=== PATIENT | female | born 1980 | race Caucasian/White ===

== ENCOUNTER 2016-04-24 23:41 | Emergency (ER) | payer OTHER ==
[2016-04-24 23:52] VITALS: BP 92/62; PULSE 91; TEMP 98; BMI 18.6
--- NOTE | 2016-04-24 23:58 | PDOC ---
History of Present Illness - General Chief Complaint: Abscess Boil Stated Complaint: BARTHOLIN CYST Time Seen by Provider: 04/24/16 23:55 History Source: Patient Exam Limitations: No Limitations - History of Present Illness Initial Comments: 04/24/16 23:56 This is a 35-year-old female who comes in complaining of a Bartholin's cyst that is causing her discomfort. Patient denies any fevers or chills. Patient has had a Bartholin's cyst in the past that had to be incised and drained in the past. PAST MEDICAL HISTORY: no significant history PAST SURGICAL HISTORY: no significant history FAMILY HISTORY: no pertinant history SOCIAL HISTORY: Pt lives with family and is employed. MEDICATIONS: reviewed ALLERGIES: As per nursing notes Review of Systems General: No fevers or chills, no weakness, no weight loss HEENT: No change in vision. No sore throat,. No ear pain CardioVascular: No chest pain or shortness of breath Respiratory:No cough, or wheezing. Gastrointestinal: no nausea, vomitting, diarrhea or constipation, No rectal bleeding Genitourinary: No dysuria, hematuria, or frequency, Bartholin's cyst as per history of present illness Musculoskeletal: No joint or muscle pain or swelling Neurologic: No headache, vertigo, dizziness or loss of consciousness Psychiatric: nor depression Skin: No rashes or easy bruising Endocrine: no increased thirst or abnormal weight change Allergic: no skin or latex allergy All other systems reviewed and normal GENERAL: The patient is awake, alert, and fully oriented, in no acute distress. HEAD: Normal with no signs of trauma. EYES: Pupils equal, round and reactive to light, extraocular movements intact, sclera anicteric, conjunctiva clear. EXTREMITIES: Normal range of motion, no edema. Genital: There is some erythema and tenderness of the right labia area however there is no palpable collection at this time. NEUROLOGICAL: Normal speech, normal gait. PSYCH: Normal mood, normal affect. SKIN: Warm, Dry, normal turgor, no rashes or lesions noted. 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 OVARY.) GI Disorders: Yes (CROHNS DISEASE.) Disorders: Yes (ENDOMETRIOSIS.) Psychiatric Problems: Yes (ANXIETY.DEPRESSION) - Surgical History Abdominal Surgery: Yes Cholecystectomy: Yes - Psycho/Social/Smoking Cessation Hx Anxiety: Yes Suicidal Ideation: No Smoking History: Current every day smoker Number of Cigarettes Smoked Daily: 10 Information on smoking cessation initiated: Yes Hx Alcohol Use: No Substance Use Type: None *Physical Exam - Vital Signs Last Vital Signs Temp Pulse Resp BP Pulse Ox 98 F 91 H 16 92/62 99 04/24/16 23:49 04/24/16 23:49 04/24/16 23:49 04/24/16 23:49 04/24/16 23:49 *DC/Admit/Observation/Transfer Diagnosis at time of Disposition: Cyst of Bartholin's gland duct - Discharge Dispostion Disposition: HOME Condition at time of disposition: Stable Admit: No - Patient Instructions Additional Instructions: Hot compresses to the area.. Tylenol or Motrin as needed for pain. Follow-up with your OB on Wednesday if not improved. Return to the emergency department immediately with ANY new, persistent or worsening symptoms. Continue any medications as previously prescribed by your physician. You should follow up with your primary doctor as soon as possible regarding today's emergency department visit. . Please make sure your doctor reviews the results of your emergency evaluation. Thank you for coming to the Emergency Department today for your care. It was a pleasure to see you today. Please note that your evaluation is INCOMPLETE until you follow-up with your doctor.
== END 2016-04-24 23:59 | disposition home or self-care (01) ==
LOC: FER 23:41
DX: N75.0 Cyst of Bartholin's gland (principal); F17.210 Nicotine dependence, cigarettes, uncomplicated; Z85.43 Personal history of malignant neoplasm of ovary; F41.8 Other specified anxiety disorders; K50.90 Crohn's disease, unspecified, without complications
CPT/HCPCS: 99282-25

== ENCOUNTER 2016-05-09 01:48 | Emergency (ER) | payer OTHER ==
[2016-05-09 02:06] VITALS: TEMP 98.6; BMI 23.0
[2016-05-09] MEDS ORDERED: SODIUM CHLORIDE 1,000 ML IV STA ×2 (02:37→05:07)
[2016-05-09] MEDS ORDERED: ONDANSETRON 4 MG/2 ML VIAL IVPUSH ONE ×2 (02:37→03:40)
--- NOTE | 2016-05-09 02:38 | PDOC ---
History of Present Illness - General Chief Complaint: Pain, Acute Stated Complaint: ABD PAIN, N/V/D Time Seen by Provider: 05/09/16 02:29 - History of Present Illness Initial Comments: 05/09/16 02:42 This 35-year-old woman with a history of Crohn's disease, ovarian carcinoma, endometriosis, ovarian cysts, pancreatitis, cyclical vomiting syndrome presents with 2 day history of persistent nausea/vomiting and lower abdominal pain. Patient states that she has had vomiting with any oral intake. No blood/coffee grounds ; has only seen partially digested food or liquids in emesis. She had one loose stool this morning. She took Imodium after this and has had no other bowel movements today. No recent fever/chills. Patient is currently being treated with Remicade infusions every several months for her Crohn's disease (none for the last 6 months) and has not had any recent flareups. Patient has left-sided ovarian cyst that reportedly is large and is being followed by ultrasound every several weeks by her ceo and president. She has not had an ultrasound in a few months. Patient was hospitalized in September, with pancreatitis. Although etiology of the pancreatitis was unclear, patient underwent cholecystectomy during the hospitalization. Ovarian carcinoma diagnosis was several years ago; she had appendectomy performed during procedure for the her ovarian carcinoma. Patient was hospitalized approximately a year ago with vomiting and was diagnosed as having cyclical vomiting syndrome. She had a few previous hospitalizations for this. Patient also has a history of anxiety/depression. The patient is currently taking oxycodone daily for her lower abdominal pain ( thought to be secondary to Crohn's disease/endometriosis/abdominal surgeries); this is prescribed by her identity management consultant in [facility]. Past History - Past Medical History Allergies/Adverse Reactions: Allergies Allergy/AdvReac Type Severity Reaction Status Date / Time aspirin Allergy Mild Rash Verified 07/10/14 17:50 Home Medications: Ambulatory Orders Bupropion HCl [Wellbutrin Xl -] 150 mg PO DAILY 04/24/16 Escitalopram Oxalate [Lexapro -] 25 mg PO DAILY 04/24/16 Ondansetron [Zofran -] 4 mg PO BID PRN #10 tablet 05/09/16 Oxycodone HCl/Acetaminophen [Percocet 10-325 mg Tablet] 1 each PO PRN PRN Prednisone [Deltasone -] 40 mg PO DAILY #14 tablet 05/09/16 Ranitidine HCl [Zantac] 150 mg PO DAILY 05/09/16 Zolpidem Tartrate [Ambien] 10 mg PO PRN PRN 05/09/16 Cancer: Yes (CA TUMOR TO RT OVARY.) GI Disorders: Yes (CROHNS DISEASE, GERD,) Disorders: Yes (ENDOMETRIOSIS.) Liver Disease: (PANCREATITIS) Psychiatric Problems: Yes (ANXIETY.DEPRESSION) Other medical history: CHRONIC PAIN, INSOMNIA - Surgical History Abdominal Surgery: Yes Cholecystectomy: Yes - Psycho/Social/Smoking Cessation Hx Anxiety: Yes Suicidal Ideation: No Smoking History: Current every day smoker Have you smoked in the past 12 months: Yes Number of Cigarettes Smoked Daily: 10 Information on smoking cessation initiated: Yes 'Breaking Loose' booklet given: 05/09/16 Hx Alcohol Use: No Substance Use Type: None Review of Systems - Review of Systems Able to Perform ROS?: Yes Comments:: 12 point review of systems is negative except for what is noted in the history of present illness *Physical Exam - Vital Signs Last Vital Signs Temp Pulse Resp BP Pulse Ox 98.6 F 106 H 16 102/67 100 05/09/16 01:50 05/09/16 01:50 05/09/16 01:50 05/09/16 01:50 05/09/16 01:50 - Physical Exam Comments: GENERAL: Adult female, alert and oriented 3, in no acute distress HEAD: Normal with no signs of trauma. EYES: PERRLA, EOMI, sclera anicteric, conjunctiva clear. ENT: Ears normal, nares patent, oropharynx clear without exudates. Dry mucous membranes. NECK: Normal range of motion, supple without lymphadenopathy, JVD, or masses. LUNGS: Breath sounds equal, clear to auscultation bilaterally. No wheezes, and no crackles. HEART:Regular rate and rhythm, normal S1 and S2 without murmur, rub or gallop. ABDOMEN: Hypoactive bowel sounds, soft, nondistended; moderate bilateral lower quadrant tenderness without rebound or guarding No masses or organomegaly evident EXTREMITIES: Normal range of motion, no edema. No clubbing or cyanosis. No erythema, or tenderness. NEUROLOGICAL: Cranial nerves II through XII grossly intact. Normal speech. No focal neurologic deficits MUSCULOSKELETAL: Back non-tender to palpation, no CVA tenderness SKIN: Warm, Dry, normal turgor, no rashes or lesions noted. ED Treatment Course - LABORATORY CBC & Chemistry Diagram: 05/09/16 01:35 05/09/16 03:29 Medical Decision Making - Medical Decision Making 05/09/16 03:43 Nausea and lower abdominal pain continues after 4 mg of Zofran IV and 1 g of acetaminophen IV. Additional 4 mg of Zofran will be given as well as 2 mg of morphine IV Laboratory evaluation showed a CBC which was essentially normal. Chemistry profile significant for moderate prerenal azotemia (BUN 15/creatinine 0.6) Lipase was normal. Patient required an additional 2 mg of morphine IV for analgesia. Patient received 2 L and normal saline IV. Abdominal/pelvic CT performed. Other than thickening of the terminal ileum, no other abnormality seen. In light of patient's history of Crohn's disease, this is consistent with Crohn's disease flareup ileitis. Results discussed with the patient. She has required corticosteroids in the past for Crohn's disease flareups, although this has not occurred in quite a while. Flareup may be secondary to the lack of Remicade infusion for the last several months. Patient states that she will be able to follow-up with her brick and tile making machine operator in [facility] in the near future. Patient will be given 125 mg of Solu-Medrol IV as well as an additional 500 mL of normal saline IV 05/09/16 06:08 Patient has used Zofran by mouth in the past as needed for nausea; prescription for Zofran 4 mg (#10) to be used up to twice a day as needed for nausea will be transmitted to her pharmacy. Also, Prednisone, 40mg daily will be prescribed. The patient will be given 14 tablets of 20 mg for a one-week course. However, she should follow-up with her brick and tile making machine operator within the next 3-4 days. She should return to the emergency room if she has worsening pain or persistent vomiting *DC/Admit/Observation/Transfer Diagnosis at time of Disposition: Crohn's disease involving terminal ileum - Discharge Dispostion Disposition: HOME Condition at time of disposition: Stable - Patient Instructions Printed Discharge Instructions: DI for Crohn's Disease Flare Additional Instructions: Prednisone 40 mg daily Continue other medications as prescribed Follow-up with your brick and tile making machine operator within the next 3-4 days Zofran 4 mg as needed for nausea Return to the ER if you have worsening pain/fever/persistent vomiting
[2016-05-09] MEDS ORDERED: ACETAMINOPHEN 1000 MG/100 ML VIAL (NON FORMULARY) IVPB ONE (02:46)
[2016-05-09 03:03] LABS: BASOPHIL 0.4 % (0-2.0); EOSINOPHIL 0.3 % (0-4.5); MCH 27.9 pg (25.7-33.7); MCHC 33.5 g/dl (32.0-36.0); MEAN CELL VOLUME 83.2 fl (80-96); MEAN PLT VOLUME 7.4 fl (7.5-11.1); NEUTROPHILS 77.1 % (42.8-82.8); PLATELET COUNT 435 K/MM3 (134-434); RDW 17.1 % (11.6-15.6)
[2016-05-09 03:19] LABS: URINE COLOR DK YELLOW
[2016-05-09 03:20] LABS: URINE APPEARANCE SL CLOUDY; URINE BILIRUBIN 2+ (NEGATIVE); URINE BLOOD NEGATIVE (NEGATIVE); URINE GLUCOSE (UA) NEGATIVE (NEGATIVE); URINE KETONE NEGATIVE (NEGATIVE); URINE PROTEIN 1+ (NEGATIVE)
[2016-05-09 03:21] LABS: URINE LEUK ESTERASE 1+ (NEGATIVE); URINE NITRITE NEGATIVE (NEGATIVE); URINE RBC 6 /hpf (0-3); URINE UROBILINOGEN NORMAL (0.2-1.0)
[2016-05-09 03:22] LABS: URINE BACTERIA MODERATE /hpf (NEGATIVE); URINE MUCUS MANY; URINE WBC 33 (3-5)
[2016-05-09 03:39] VITALS: BP 113/77; PULSE 86
[2016-05-09] MEDS ORDERED: morphine CARPU-JECT 2 MG/1 ML DISP.SYRIN IVPUSH ONE ×2 (03:39→05:06)
[2016-05-09 04:43] LABS: ALBUMIN 3.3 g/dl (3.4-5.0); ALK PHOS 81 U/L (45-117); ANION GAP 10 (8-16); BILIRUBIN,TOTAL 0.7 mg/dL (0.2-1.0); CALCIUM 7.8 mg/dL (8.5-10.1); CO2 24 mmol/L (21-32); CREATININE 0.6 mg/dL (0.55-1.02); GLUCOSE,RANDOM 91 mg/dL (74-106); SGOT/AST 19 U/L (15-37); SGPT/ALT 25 U/L (12-78); TOT PROT 6.6 g/dl (6.4-8.2)
[2016-05-09] MEDS ORDERED: methylPREDNISolone NA SUCC 125 MG/2 ML VIAL IVPB ONE (05:51)
[2016-05-09] MEDS ORDERED: SODIUM CHLORIDE 500 ML IV STA (05:54)
== END 2016-05-09 06:36 | disposition home or self-care (01) ==
LOC: FER 01:48
PROC: 3E033NZ Introduction of Analgesics, Hypnotics, Sedatives into Peripheral Vein, Percutaneous Approach (ICD-10-PCS; principal; 2016-05-09)
PROC: 3E033GC Introduction of Other Therapeutic Substance into Peripheral Vein, Percutaneous Approach (ICD-10-PCS; 2016-05-09)
PROC: 3E0337Z Introduction of Electrolytic and Water Balance Substance into Peripheral Vein, Percutaneous Approach (ICD-10-PCS; 2016-05-09)
DX: K50.00 Crohn's disease of small intestine without complications (principal); Z85.43 Personal history of malignant neoplasm of ovary; F41.8 Other specified anxiety disorders; F17.210 Nicotine dependence, cigarettes, uncomplicated; K21.9 Gastro-esophageal reflux disease without esophagitis
CPT/HCPCS: 36415; 74176-TC; 80053; 81003; 81015; 83690; 84703; 85025; 96361; 96374; 96375; 96376; 99283-25

== ENCOUNTER 2016-05-09 18:08 | Inpatient (IN) | payer OTHER ==
--- NOTE | 2016-05-09 18:13 | PDOC ---
History of Present Illness - General History Source: Patient Exam Limitations: No Limitations - History of Present Illness Initial Comments: 05/09/16 18:23 The patient is a year old, with significant past medical history Crohns disease , ovarian carcinoma, endometriosis, ovarian cysts, pancreatitis, and cyclical vomiting syndrome, anxiety, depression, who was seen in the ER earlier today complaining of abdominal pain with nausea and vomiting. Ct showed thickening of the terminal ileum that is consistent with a Crohns flare. She was discharged with sublingual zofran and oral prednisone. She returns now with persistent vomiting, nausea, and RLQ pain. She states that she is unable to hold down any of the medications prescribed. The patient has not been compliant with Remicade infusions, with her most recent infusion being 6 months ago. She reports that her last flareup was 1 year ago. Denies fever, chills. Denies chest pain, SOB. Denies urinary changes. Allergies:aspirin Social Hx: Tobacco use. No alcohol use. PCP- Dr. Macdonald ([facility]) Gastro: Dr. Welch ([facility]) <Stephany Blandon - Last Filed: 05/09/16 18:23> <Will Jo - Last Filed: 05/09/16 18:52> - General Chief Complaint: Pain Stated Complaint: REVISIT FOR ABDOMINAL PAIN Time Seen by Provider: 05/09/16 18:12 Past History <Stephany Blandon - Last Filed: 05/09/16 18:23> - Past Medical History Cancer: Yes (CA TUMOR TO RT OVARY.) GI Disorders: Yes (CROHNS DISEASE, GERD,) Disorders: Yes (ENDOMETRIOSIS.) Liver Disease: (PANCREATITIS) Psychiatric Problems: Yes (ANXIETY.DEPRESSION) - Surgical History Abdominal Surgery: Yes Cholecystectomy: Yes - Psycho/Social/Smoking Cessation Hx Anxiety: Yes Suicidal Ideation: No Smoking History: Current every day smoker Have you smoked in the past 12 months: Yes Number of Cigarettes Smoked Daily: 10 'Breaking Loose' booklet given: 05/09/16 Hx Alcohol Use: No Substance Use Type: None <Will Jo - Last Filed: 05/09/16 18:52> - Past Medical History Allergies/Adverse Reactions: Allergies Allergy/AdvReac Type Severity Reaction Status Date / Time aspirin Allergy Mild Rash Verified 07/10/14 17:50 Home Medications: Ambulatory Orders Bupropion HCl [Wellbutrin Xl -] 150 mg PO DAILY 04/24/16 Escitalopram Oxalate [Lexapro -] 25 mg PO DAILY 04/24/16 Ondansetron [Zofran -] 4 mg PO BID PRN #10 tablet 05/09/16 Oxycodone HCl/Acetaminophen [Percocet 10-325 mg Tablet] 1 each PO PRN PRN Prednisone [Deltasone -] 40 mg PO DAILY #14 tablet 05/09/16 Ranitidine HCl [Zantac] 150 mg PO DAILY 05/09/16 Zolpidem Tartrate [Ambien] 10 mg PO PRN PRN 05/09/16 Review of Systems - Review of Systems Comments:: 05/09/16 18:24 CONSTITUTIONAL: Absent: fever, no chills, no fatigue EYES: Absent: visual changes ENT: Absent: ear pain, no sore throat CARDIOVASCULAR: Absent: chest pain, no palpitations RESPIRATORY: Absent: cough, no SOB GI: Present: RLQ pain, nausea, vomiting Absent: no constipation, no diarrhea GENITOURINARY: Absent: dysuria, no frequency, no hematuria MUSCULOSKELETAL: Absent: back pain, no arthralgia, no myalgia SKIN: Absent: rash <Stephany Blandon - Last Filed: 05/09/16 18:23> *Physical Exam - Vital Signs Last Vital Signs Temp Pulse Resp BP Pulse Ox 99.3 F 91 H 15 107/71 100 05/09/16 18:09 05/09/16 18:09 05/09/16 18:09 05/09/16 18:09 05/09/16 18:09 - Physical Exam Comments: 05/09/16 18:24 GENERAL: Well-appearing, well-nourished. No apparent distress. HEENT: Normocephalic, atraumatic. PERRL, EOM intact. CARDIOVASCULAR: Normal S1, S2. Regular rate and rhythm. PULMONARY: Clear to auscultation bilaterally. ABDOMEN: Mild RLQ tenderness upon deep palpation. Soft, non-distended. EXTREMITIES: Normal ROM in all four extremities. No gross deformities. SKIN: Warm, dry. No rash NEUROLOGICAL: No focal neurological deficits. <Stephany Blandon - Last Filed: 05/09/16 18:23> Heart Score/ECG Review - ECG Intrepretation Comment:: 05/09/16 18:51 Normal sinus rhythm at 90, normal axis, normal intervals, no ST changes, flat T- wave in 1, aVL, lead 3 <Will Jo - Last Filed: 05/09/16 18:52> Medical Decision Making - Medical Decision Making 05/09/16 18:21 The patient is well appearing and in no acute distress Will repeat labs Will administer Morphine, Zofran, Normal Saline Will admit She will require GI consult There is no gastroenterology coverage at the [facility] Will transfer to [facility] Clinical Impression: Crohn's Flare Intractible vomiting Case discussed in detail with admitting provider including history, physical exam and ancillary studies. Admitting physician has assumed care for the patient, will follow all pending diagnostics and will complete the evaluation and treatment. A portion of this note was documented by scribe services under my direction. I have reviewed the details of the note, within reason, and agree with the documentation with the following case summary and management plan written by me. 05/09/16 18:52 Labs pending Oncoming emergency physician will follow results and communicates significant findings to the admitting physician <Will Jo - Last Filed: 05/09/16 18:52> *DC/Admit/Observation/Transfer - Attestations Scribe Attestion: 05/09/16 18:24 Documentation prepared by MARCELLUS Trinidad, acting as medical consultant for Emergency Dept,Physician, . <Stephany Blandon - Last Filed: 05/09/16 18:23> - Discharge Dispostion Admit: Yes <Will Jo - Last Filed: 05/09/16 18:52> Diagnosis at time of Disposition: Crohn disease, Crohn's disease involving terminal ileum, Abdominal pain - Discharge Dispostion Condition at time of disposition: Good
[2016-05-09] MEDS ORDERED: SODIUM CHLORIDE 1,000 ML IV STA (18:15)
[2016-05-09] MEDS ORDERED: ONDANSETRON 4 MG/2 ML VIAL ONE (18:22)
[2016-05-09] MEDS ORDERED: morphine CARPU-JECT 4 MG/1 ML DISP.SYRIN IVPUSH ONE (18:23)
[2016-05-09] MEDS ORDERED: ONDANSETRON 4 MG/2 ML VIAL IVPB ONE (18:23)
[2016-05-09] MEDS ORDERED: morphine CARPU-JECT 10 MG/1 ML DISP.SYRIN ONE (18:25)
[2016-05-09 19:30] LABS: BASOPHIL 0.3 % (0-2.0); INR 1.15 (0.82-1.09); MCHC 33.8 g/dl (32.0-36.0); MEAN CELL VOLUME 82.8 fl (80-96); MEAN PLT VOLUME 7.3 fl (7.5-11.1); NEUTROPHILS 86.3 % (42.8-82.8); PLATELET COUNT 452 K/MM3 (134-434); PROTHROMBIN TIME (PATIENT) 12.8 SEC (10.2-13.0); RDW 16.3 % (11.6-15.6); WHITE BLOOD COUNT 6.2 K/mm3 (4.0-10.0)
[2016-05-09 19:41] LABS: CREATININE 0.5 mg/dl (0.6-1.3); GLUCOSE,RANDOM 149 mg/dl (74-106)
[2016-05-09 19:42] LABS: ALBUMIN 3.9 g/dl (3.5-5.0); ALK PHOS 75 U/L (32-92); ANION GAP 7 (8-16); BILIRUBIN,TOTAL 0.8 mg/dl (0.2-1.0); CALCIUM 9.3 mg/dl (8.4-10.2); CO2 23 mmol/L (22-28); SGOT/AST 35 U/L (10-42); SGPT/ALT 21 U/L (10-40); TOT PROT 7.5 g/dl (6.4-8.3)
[2016-05-09] MEDS ORDERED: morphine CARPU-JECT 2 MG/1 ML DISP.SYRIN IVPUSH ONE ×2 (20:11→21:05)
[2016-05-09 20:21] LABS: URINE APPEARANCE Clear; URINE BILIRUBIN Negative (NEGATIVE); URINE BLOOD Negative (NEGATIVE); URINE COLOR YELLOW; URINE GLUCOSE (UA) Negative (NEGATIVE); URINE KETONE Negative (NEGATIVE); URINE LEUK ESTERASE Negative (NEGATIVE); URINE NITRITE Negative (NEGATIVE); URINE PROTEIN Negative (NEGATIVE); URINE UROBILINOGEN 0.2 E.U/dl (0.2-1.0)
[2016-05-09] MEDS ORDERED: ACETAMINOPHEN 325 MG TABLET (FP) PO PRN (22:47)
[2016-05-09] MEDS ORDERED: METOCLOPRAMIDE HCL INJECTION 10 MG/2 ML VIAL IVPB PRN (22:48)
--- NOTE | 2016-05-09 22:49 | HP ---
Admitting History and Physical - Admission Chief Complaint: n/v abd pain History of Present Illness: 35 year old, with significant past medical history Crohns disease, ovarian carcinoma, endometriosis, ovarian cysts, pancreatitis, and cyclical vomiting syndrome, anxiety, depression, who was seen in the ER earlier today complaining of abdominal pain with nausea and vomiting. She reports onset of symptoms 3 days ago beginning with loss of appetite and advancing to nausea, vomiting, diarrhea and RLQ pain. She reports RLQ which is intermittent sharp/crampy, 6/10 , aggravated w food. She reports the pain radiates to her R leg. She reports taking Tylenol at home w no relief. She reports having non-bloody diarrhea x 2 days. She states she took 2 of the Prednisone prescribed to her earlier in the day w no relief. She reports she has not been able to hold and any food down.She denies sob, chest pain, syncope, leg edema, dyuria, recent travel. Her LMP was 1 week ago. She reports having Remicade 6mon ago but stopping for no clear reason. PMH/PSH- Crohns disease, ovarian carcinoma, endometriosis, ovarian cysts, pancreatitis, cholecystecomty, appy, l ovarian cyst excision, and cyclical vomiting syndrome, anxiety, depression Social- denies alcohol, tobacco, rec drugs. , on disability Famhx- Grandad- Throat cancer. Grand mom- NOnhodgkins lymphoma, ?IBS PCP- Dr tiffanie best GI- Jumafily[facility] T[employer]AS[facility] SPECIALIST- Dr Marco Jacobs neg except for hpi Physical General- in nad, alert Resp- no cough, no ronchi, lungs ctab, no wheeze, no cyanosis Cards- s1s2 heard, no JVD, no leg edema, RRR Skin- no erythema, dry warm, intact Psych- cooperative, no agitation Neuro- cn2-12 grossly intact, speech clear, no seizures, no facial droop Musk-normal arom bue/ble, no back pain HENT- at/nc, kathleen, neck supple, trachea midline Gi- soft, no rigidity, no rebound, no guarding, no distention, TTP RLQ, BS normoactive Problem list Abdominal pain depression imaging: Abdominal/pelvic CT performed. Other than thickening of the terminal ileum, no other abnormality seen. Left adnexa 5.7cm focus of soft tissue thickening which could be on the basis of persistent/recurrent neoplastic disease vs artifactual d/t somewhat limited bowel opacification in the region and lack of iv contrast a/p-35 year old, with significant past medical history Crohns disease, ovarian carcinoma, endometriosis, ovarian cysts, pancreatitis, and cyclical vomiting syndrome, anxiety, depression, who was seen in the ER earlier today complaining of abdominal pain with nausea and vomiting admitted for eval of their emergent condition 1. Abdominal pain, diarrhea, nausea ?crohns flare CT scan show thickening of terminal ileum and left adnexa 5.7cm focus of soft tissue thickening which could be on the basis of persistent/recurrent neoplastic disease v artifactual d/t somewhat limited bowel opacification in the region and lack of iv contrast Check for cdiff Gi consult placed IVF, pain control, NPO PRN zofran reglan 2. Depression, anxiety Cont home meds FEN IVF, NPO DVT prophy SCDs, OOB, Hep SQ Dispo- Requires >2MN stay for ?acute crohns flare History Source: Patient Limitations to Obtaining History: No Limitations - Smoking History Smoking history: Current every day smoker Have you smoked in the past 12 months: Yes Aproximately how many cigarettes per day: 10 - Alcohol/Substance Use Hx Alcohol Use: No Home Medications - Allergies Allergies/Adverse Reactions: Allergies Allergy/AdvReac Type Severity Reaction Status Date / Time aspirin Allergy Mild Rash Verified 05/09/16 19:20 - Home Medications Home Medications: Ambulatory Orders Bupropion HCl [Wellbutrin Xl -] 150 mg PO DAILY 04/24/16 Escitalopram Oxalate [Lexapro -] 25 mg PO DAILY 04/24/16 Ondansetron [Zofran -] 4 mg PO BID PRN #10 tablet 05/09/16 Oxycodone HCl/Acetaminophen [Percocet 10-325 mg Tablet] 1 each PO PRN PRN Prednisone [Deltasone -] 40 mg PO DAILY #14 tablet 05/09/16 Ranitidine HCl [Zantac] 150 mg PO DAILY 05/09/16 Zolpidem Tartrate [Ambien] 10 mg PO PRN PRN 05/09/16 Clonazepam [Klonopin -] 0.5 mg PO ASDIR 05/10/16 Rifaximin [Xifaxan] 550 mg PO BID 05/10/16 Physical Examination Vital Signs: Vital Signs Temperature 99.3 F 03/25/17 21:08 Pulse Rate 56 L 05/09/16 21:08 Respiratory Rate 16 05/09/16 21:08 Blood Pressure 110/75 05/09/16 21:08 O2 Sat by Pulse Oximetry (%) 100 05/09/16 18:09 Visit type - Emergency Visit Emergency Visit: Yes ED Registration Date: 05/09/16 Care time: The patient presented to the Emergency Department on the above date and was hospitalized for further evaluation of their emergent condition. - New Patient This patient is new to me today: Yes Date on this admission: 05/10/16 - Critical Care Critical Care patient: No
[2016-05-09] MEDS: SODIUM CHLORIDE 1,000 ML IV SCH (23:36)
[2016-05-09] MEDS: ONDANSETRON 4 MG/2 ML VIAL IVPB PRN (23:37)
[2016-05-09] MEDS: ZOLPIDEM TARTRATE 5 MG TABLET PO PRN (23:39)
[2016-05-10 00:12] VITALS: BMI 22.7
[2016-05-10] MEDS: morphine CARPU-JECT 2 MG/1 ML DISP.SYRIN IVPB PRN ×7 (00:48→23:42)
[2016-05-10] MEDS ORDERED: MAG HYDROX/AL HYDROX/SIMETH 30 ML UNIT-DOSE CUP PO PRN (01:21)
[2016-05-10] MEDS: HEPARIN NA (PORCINE) 5,000 UNITS/ML 1ML VIAL SQ SCH ×3 (06:31→22:11)
[2016-05-10] MEDS: ONDANSETRON 4 MG/2 ML VIAL IVPB PRN (06:31)
[2016-05-10] MEDS ORDERED: PANTOPRAZOLE SODIUM 40 MG in SODIUM CHLORIDE 100 ML IVPB SCH (10:00)
[2016-05-10] MEDS ORDERED: PANTOPRAZOLE SODIUM 40 MG/100 ML PRE-DOCKED IVPB SCH (10:00)
--- NOTE | 2016-05-10 11:20 | CON.GI ---
Consult Consult Specialty:: GI Referred by:: Hospitalist Reason for Consultation:: History of Crohn's disease - History of Present Illness Chief Complaint: "I was nauseous and vomiting" History of Present Illness: 35F with 10 year history of Crohn's Disease (? small bowel. Patient not too clear). She lives in [facility] and is followed by and is visitng her friend down here. She was seen at the [facility] yesterday 05/09/16 for abdominal pain and vomiting. There was no GI conultant available (Dr. Greg Foster away but ? no GI coverage) and she was therefore transferred to [facility] for further evaluation. She has currently had no nausea, vomiting or diarrhea and remains afebrile. In terms of her IBD in the past she was started on Asacol however she developed a rash. She was then on Humira, whichc did not seem to work and was maintained on Remicade. She says that while the remicade seemed to work, she did not continue with therapy. She had not seen her color maker formulator Dr. Amrik Mattson in "months" and she believes that her last colonoscopy was about 5 years ago. She describes being on rifaximin for ? GERD. Overall she feels better. There is no family history of colorectal cancer or other GI malignancy. - History Source History Provided By: Patient Limitations to Obtaining History: No Limitations - Past Medical History Gastrointestinal: Yes: Crohn's Disease Reproductive: Yes: Endometriosis, Other (Ovarian cancer s/p right ooporectomy, Left ovarian cyst s/p cystectomy) - Past Surgical History Past Surgical History: Yes: Cholecystectomy (laparoscopic) - Alcohol/Substance Use Hx Alcohol Use: No History of Substance Use: reports: None - Smoking History Smoking history: Current every day smoker Have you smoked in the past 12 months: Yes Aproximately how many cigarettes per day: 10 - Social History Usual Living Arrangement: With Spouse ADL: Independent Occupation: Unemplyed Place of : [employer] [facility] History of Recent Travel: No Home Medications - Allergies Allergies/Adverse Reactions: Allergies Allergy/AdvReac Type Severity Reaction Status Date / Time aspirin Allergy Mild Rash Verified 05/09/16 19:20 - Home Medications Home Medications: Ambulatory Orders Bupropion HCl [Wellbutrin Xl -] 150 mg PO DAILY 04/24/16 Escitalopram Oxalate [Lexapro -] 25 mg PO DAILY 04/24/16 Ondansetron [Zofran -] 4 mg PO BID PRN #10 tablet 05/09/16 Oxycodone HCl/Acetaminophen [Percocet 10-325 mg Tablet] 1 each PO PRN PRN Prednisone [Deltasone -] 40 mg PO DAILY #14 tablet 05/09/16 Ranitidine HCl [Zantac] 150 mg PO DAILY 05/09/16 Zolpidem Tartrate [Ambien] 10 mg PO PRN PRN 05/09/16 Clonazepam [Klonopin -] 0.5 mg PO ASDIR 05/10/16 Rifaximin [Xifaxan] 550 mg PO BID 05/10/16 Family Disease History - Family Disease History Family Disease History: Other: Father (alive: healty), Mother (alive: healthy), Sister (1: healthy) Other Family History: No children Review of Systems - Review of Systems Constitutional: denies: Chills, Unintentional Wgt. Loss Cardiovascular: denies: Chest Pain Respiratory: denies: SOB Gastrointestinal: reports: Abdominal Pain, Diarrhea. denies: Rectal Bleeding Physical Exam-GI Vital Signs: Vital Signs Temperature 98.3 F 05/10/16 06:00 Pulse Rate 62 05/10/16 06:00 Respiratory Rate 20 05/10/16 06:00 Blood Pressure 102/67 05/10/16 06:00 O2 Sat by Pulse Oximetry (%) 98 05/09/16 23:00 Constitutional: Yes: Calm Eyes: No: Sclera Icterus Cardiovascular: Yes: Regular Rate and Rhythm, Murmur (2/6 systolic) Respiratory: Yes: CTA Bilaterally ...Auscultate: Yes: Normoactive Bowel Sounds ...Palpate: Yes: Tenderness (TTP pelvis / lower abdomen). No: Guarding ...Percussion: No: Tympanitic ...Rectal Exam: Yes: Guaiac Negative. No: Mass Edema: No Neurological: Yes: Alert, Oriented Labs: INR, PTT INR 1.15 (0.82-1.09) 05/09/16 19:00 CBC, BMP 05/09/16 19:00 05/09/16 19:00 Hepatic Panel Total Bilirubin 0.8 mg/dl (0.2-1.0) 05/09/16 19:00 AST 35 U/L (10-42) 05/09/16 19:00 ALT 21 U/L (10-40) 05/09/16 19:00 Alkaline Phosphatase 75 U/L (32-92) 05/09/16 19:00 Albumin 3.9 g/dl (3.5-5.0) 05/09/16 19:00 Imaging - Results Cat Scan: Report Reviewed (thickening of terminal ileum, ? soft tissue density left adnexa), Image Reviewed Problem List - Problems (1) Abdominal pain Assessment/Plan: Unclear if Crohn's disease vs. alternate etiology. Patient not anemic, no current diarrhea and clinically looks well. She does carry other diagnoses including endometriosis, ovarian cancer and has had pelvic surgery for ovarian cancer. ? if this is contributing to her pain. She also has a ? soft tissue density in her left adnexa that will need evaluation. Advise the following: Advance to clears Levaquin and flagyl for now Stool for C. Diff, O&P, culture, Calprotectin I strongly urged that she follow-up with her color maker formulator Dr. Mattson upon discharge and that she call his office to arrange an appointment as she will likely need colonoscopy and maintenance of her Crohn's disease. Hot Dip Plater evaluation: will need eval of abnormal CT scan findings Code(s): R10.9 - UNSPECIFIED ABDOMINAL PAIN
--- NOTE | 2016-05-10 11:22 | EKG ---
Test Reason : Blood Pressure : / mmHG Vent. Rate : 088 BPM Atrial Rate : 088 BPM P-R Int : 136 ms QRS Dur : 072 ms QT Int : 374 ms P-R-T Axes : 061 042 034 degrees QTc Int : 452 ms NORMAL SINUS RHYTHM T WAVE ABNORMALITY, CONSIDER ANTERIOR ISCHEMIA NO PREVIOUS ECGS AVAILABLE Confirmed by MD TIGRE, LUCINA ([id number]) on 05/10/2016 11:22:30 AM Referred By: VICKI Confirmed By:LUCINA LANDEROS MD
[2016-05-10] MEDS ORDERED: ACETAMINOPHEN 325 MG TABLET (FP) PO ONE (11:30)
[2016-05-10] MEDS: SODIUM CHLORIDE 1,000 ML IV SCH ×2 (11:48→23:38)
[2016-05-10] MEDS: ESCITALOPRAM OXALATE 10 MG TABLET (FP) PO SCH (11:49)
[2016-05-10] MEDS: METRONIDAZOLE 500 MG PREMIXED 100 ML IVPB SCH ×2 (12:26→18:32)
[2016-05-10] MEDS ORDERED: LEVOFLOXACIN 500 MG IVPB 100 ML IVPB ONE (12:30)
[2016-05-10] MEDS ORDERED: ONDANSETRON 4 MG/2 ML VIAL ONE (15:06)
[2016-05-10] MEDS ORDERED: METOCLOPRAMIDE HCL INJECTION 10 MG/2 ML VIAL IVPB PRN (15:13)
[2016-05-10] MEDS: ONDANSETRON 4 MG/2 ML VIAL IVPUSH PRN (15:26)
--- NOTE | 2016-05-10 17:38 | PN ---
Physical Exam: SUBJECTIVE: Patient seen and examined. She says the morphine doesn't help her pain, she wants dilaudid. She says she is nauseated. OBJECTIVE: Vital Signs Period Temp Pulse Resp BP Sys/Mckee Pulse Ox Last 24 Hr 98.3 F-98.9 F 62-69 20-20 102-117/66-76 98 PE Neuro: alert, awake, cn 2-12intact Pulm: CTAB CV: s1 s2 rrr no mrg Abd: RLQ tenderness to deep palpation, s +bs Ext: warm, no le edema Laboratory Results - last 24 hr 05/10/16 05/10/16 12:16 12:16 ESR 20 C-Reactive Protein < 0.3 Active Medications Generic Name Dose Route Start Last Admin Trade Name Freq PRN Reason Stop Dose Admin Al Hydroxide/Mg Hydroxide 30 ml 05/10/16 01:21 05/10/16 01:32 Mylanta Oral Suspension - PO 30 ml Q6H PRN Administration INDIGESTION Bupropion HCl 150 mg 05/10/16 10:00 05/10/16 11:49 Wellbutrin Xl - PO 150 mg DAILY LEXIS Administration Escitalopram Oxalate 20 mg 05/10/16 10:00 05/10/16 11:49 Lexapro - PO 20 mg DAILY LEXIS Administration Heparin Sodium (Porcine) 5,000 unit 05/10/16 06:00 05/10/16 13:26 Heparin - SQ Not Given TID LEXIS Sodium Chloride 1,000 mls @ 100 mls/hr 05/09/16 23:00 05/10/16 11:48 Normal Saline - IV 100 mls/hr ASDIR LEXIS Administration Metronidazole 100 mls @ 100 mls/hr 05/10/16 12:15 05/10/16 12:26 Flagyl 500mg Premixed Ivpb - IVPB 100 mls/hr Q8H-IV LEXIS Administration Metoclopramide HCl 10 mg 05/10/16 15:13 Reglan Injection - IVPB Q8H PRN NAUSEA AND/OR VOMITING Morphine Sulfate 2 mg 05/09/16 23:50 05/10/16 15:55 Morphine Injection - IVPB 2 mg Q3H PRN Administration PAIN Ondansetron HCl 4 mg 05/10/16 15:13 05/10/16 15:26 Zofran Injection IVPUSH 4 mg Q6H PRN Administration NAUSEA AND/OR VOMITING Oxycodone HCl 5 mg 05/10/16 15:46 Roxicodone - PO Q4H PRN PAIN Zolpidem Tartrate 10 mg 05/09/16 22:57 05/09/16 23:39 Ambien - PO 10 mg HS PRN Administration INSOMNIA Assessment: 35 year old with pmhx of Crohns disease, ovarian carcinoma, endometriosis, ovarian cysts, pancreatitis, and cyclical vomiting syndrome, anxiety, depression admitted with abdominal pain with nausea and vomiting. Plan: 1. Abdominal pain - Chron's vs pelvic mass/PID - Clinically non infectious appearing - CTAP shows L 5.7cm soft tissue thickening of left adenaxa - Will obtain CTAP with contrast - Levaquin/flagyl started by GI - Follow stool studies 2. Cronh's Disease - Will need strict follow up with GI Dr. Mattson, pt aware - Stop remicaid ~6 months ago - Appreciate GI consult 3. Depression - Lexapro, Wellbutrin 4. Nausea - Reglan/Zofran PRN Visit type - Emergency Visit Emergency Visit: Yes ED Registration Date: 05/09/16 Care time: The patient presented to the Emergency Department on the above date and was hospitalized for further evaluation of their emergent condition. - New Patient This patient is new to me today: Yes Date on this admission: 05/10/16 - Critical Care Critical Care patient: No
[2016-05-10] MEDS: oxyCODONE HCL 5 MG TABLET PO PRN (18:30)
[2016-05-11] MEDS: ZOLPIDEM TARTRATE 5 MG TABLET PO PRN ×2 (00:42→23:55)
[2016-05-11] MEDS: METRONIDAZOLE 500 MG PREMIXED 100 ML IVPB SCH ×3 (02:00→17:32)
[2016-05-11] MEDS: oxyCODONE HCL 5 MG TABLET PO PRN ×2 (02:00→14:00)
[2016-05-11] MEDS: SODIUM CHLORIDE 1,000 ML IV SCH ×2 (03:45→16:28)
[2016-05-11] MEDS: morphine CARPU-JECT 2 MG/1 ML DISP.SYRIN IVPB PRN (06:19)
[2016-05-11] MEDS: HEPARIN NA (PORCINE) 5,000 UNITS/ML 1ML VIAL SQ SCH ×3 (06:20→21:19)
[2016-05-11 08:28] LABS: CALCIUM 8.6 mg/dL (8.5-10.1); CREATININE 0.6 mg/dL (0.55-1.02); MAGNESIUM 2.2 mg/dL (1.8-2.4)
[2016-05-11 08:34] LABS: BASOPHIL 0.2 % (0-2.0); EOSINOPHIL 0.4 % (0-4.5); MCH 27.7 pg (25.7-33.7); MEAN PLT VOLUME 7.1 fl (7.5-11.1); NEUTROPHILS 70.9 % (42.8-82.8); PLATELET COUNT 296 K/MM3 (134-434); RDW 17.3 % (11.6-15.6); WHITE BLOOD COUNT 8.8 K/mm3 (4.0-10.0)
[2016-05-11] MEDS: ESCITALOPRAM OXALATE 10 MG TABLET (FP) PO SCH (09:22)
[2016-05-11] MEDS ORDERED: POTASSIUM CHLORIDE TABS 20 MEQ TABLET.ER (FP) PO ONE (09:45)
[2016-05-11] MEDS ORDERED: LEVOFLOXACIN 500 MG IVPB 100 ML IVPB SCH (10:00)
[2016-05-11] MEDS: HYDROmorphone HCL CARPU-JECT 1 MG/1 ML DISP.SYRIN IVPB PRN ×2 (10:21→16:25)
--- NOTE | 2016-05-11 10:25 | PN ---
Physical Exam: SUBJECTIVE: Patient seen and examined. She has abdominal cramping and pain after she eats. She is having diarrhea OBJECTIVE: Vital Signs Period Temp Pulse Resp BP Sys/Mckee Pulse Ox Last 24 Hr 98.0 F-99.0 F 58-86 16-20 102-117/66-76 98 PE Neuro: alert, awake, cn 2-12intact Pulm: CTAB CV: s1 s2 rrr no mrg Abd: RLQ tenderness diffuse to epigastric, no masses appreciated, abd scar healed, Ext: warm, no le edema Laboratory Results - last 24 hr 05/10/16 05/10/16 05/11/16 12:16 12:16 07:00 WBC 8.8 RBC 4.48 Hgb 12.4 Hct 37.6 MCV 84.0 MCHC 33.0 RDW 17.3 H Plt Count 296 D MPV 7.1 L Neutrophils % 70.9 Lymphocytes % 23.2 D Monocytes % 5.3 Eosinophils % 0.4 Basophils % 0.2 ESR 20 Sodium Potassium Chloride Carbon Dioxide Anion Gap BUN Creatinine Random Glucose Calcium Magnesium C-Reactive Protein < 0.3 05/11/16 07:00 WBC RBC Hgb Hct MCV MCHC RDW Plt Count MPV Neutrophils % Lymphocytes % Monocytes % Eosinophils % Basophils % ESR Sodium 140 Potassium 3.4 L Chloride 100 Carbon Dioxide 30 D Anion Gap 10 BUN 6 L D Creatinine 0.6 Random Glucose 79 Calcium 8.6 Magnesium 2.2 C-Reactive Protein Active Medications Generic Name Dose Route Start Last Admin Trade Name Freq PRN Reason Stop Dose Admin Al Hydroxide/Mg Hydroxide 30 ml 05/10/16 01:21 05/10/16 01:32 Mylanta Oral Suspension - PO 30 ml Q6H PRN Administration INDIGESTION Bupropion HCl 150 mg 05/10/16 10:00 05/11/16 09:22 Wellbutrin Xl - PO 150 mg DAILY LEXIS Administration Escitalopram Oxalate 20 mg 05/10/16 10:00 05/11/16 09:22 Lexapro - PO 20 mg DAILY LEXIS Administration Heparin Sodium (Porcine) 5,000 unit 05/10/16 06:00 05/11/16 06:20 Heparin - SQ 5,000 unit TID LEXIS Administration Hydromorphone HCl 1 mg 05/11/16 09:30 05/11/16 10:21 Dilaudid Injection - IVPB 1 mg Q6H PRN Administration PAIN Sodium Chloride 1,000 mls @ 100 mls/hr 05/09/16 23:00 05/11/16 03:45 Normal Saline - IV 100 mls/hr ASDIR LEXIS Administration Metronidazole 100 mls @ 100 mls/hr 05/10/16 12:15 05/11/16 09:22 Flagyl 500mg Premixed Ivpb - IVPB 100 mls/hr Q8H-IV LEXIS Administration Levofloxacin 100 mls @ 100 mls/hr 05/11/16 10:00 Levaquin 500 Mg Premixed Ivpb - IVPB DAILY LEXIS Metoclopramide HCl 10 mg 05/10/16 15:13 Reglan Injection - IVPB Q8H PRN NAUSEA AND/OR VOMITING Ondansetron HCl 4 mg 05/10/16 15:13 05/10/16 15:26 Zofran Injection IVPUSH 4 mg Q6H PRN Administration NAUSEA AND/OR VOMITING Oxycodone HCl 5 mg 05/10/16 15:46 05/11/16 02:00 Roxicodone - PO 5 mg Q4H PRN Administration PAIN Zolpidem Tartrate 10 mg 05/09/16 22:57 05/11/16 00:42 Ambien - PO 10 mg HS PRN Administration INSOMNIA Imaging: - CTAP shows L 5.7cm soft tissue thickening of left adenaxa Assessment: 35 year old with pmhx of Crohns disease, ovarian carcinoma, endometriosis, ovarian cysts, pancreatitis, and cyclical vomiting syndrome, anxiety, depression admitted with abdominal pain with nausea and vomiting. Plan: 1. Abdominal pain - Chron's vs pelvic mass/PID - CTAP with contrast to assess left adenaxa final read pending - Stool studies pending - Continue Levaquin (day 2) /flagyl (day 2) - GI to advance diet 2. Cronh's Disease - Will need strict follow up with GI Dr. Mattson, pt aware - Stop remicaid ~6 months ago 3. Depression - Lexapro, Wellbutrin 4. Nausea - Reglan/Zofran PRN Visit type - Emergency Visit Emergency Visit: Yes ED Registration Date: 05/09/16 Care time: The patient presented to the Emergency Department on the above date and was hospitalized for further evaluation of their emergent condition. - New Patient This patient is new to me today: No - Critical Care Critical Care patient: No
--- NOTE | 2016-05-11 18:50 | CON.OBG ---
Consult Consult Specialty:: sweep press operator Reason for Consultation:: abdominal pain - History of Present Illness History of Present Illness: 35 yo f , lmp has her menses now . with pmx of RT oophorectomy, LT ovarian cystectomy, not sure if it was malignant , hx of endometriosis , previous surgery done at [facility] by her oncologist DR Terry, now admitted for abdominal pain and diarrhia, hx of crohn disease, ct scan complex lt adenexa cyst 5 cm - History Source History Provided By: Patient Limitations to Obtaining History: No Limitations - Past Medical History Gastrointestinal: Yes: Crohn's Disease Psych: Yes: Depression - Past Surgical History Past Surgical History: Yes: Cholecystectomy (laparoscopic), Oopherectomy (rt oophorectomy, lt ovarian cystectomy) - Alcohol/Substance Use Hx Alcohol Use: No History of Substance Use: reports: None - Smoking History Smoking history: Current every day smoker Have you smoked in the past 12 months: Yes Aproximately how many cigarettes per day: 10 - Social History Usual Living Arrangement: With Spouse ADL: Independent Occupation: Unemplyed History of Recent Travel: No Home Medications - Allergies Allergies/Adverse Reactions: Allergies Allergy/AdvReac Type Severity Reaction Status Date / Time aspirin Allergy Mild Rash Verified 05/09/16 19:20 - Home Medications Home Medications: Ambulatory Orders Bupropion HCl [Wellbutrin Xl -] 150 mg PO DAILY 04/24/16 Escitalopram Oxalate [Lexapro -] 25 mg PO DAILY 04/24/16 Ondansetron [Zofran -] 4 mg PO BID PRN #10 tablet 05/09/16 Oxycodone HCl/Acetaminophen [Percocet 10-325 mg Tablet] 1 each PO PRN PRN Prednisone [Deltasone -] 40 mg PO DAILY #14 tablet 05/09/16 Ranitidine HCl [Zantac] 150 mg PO DAILY 05/09/16 Zolpidem Tartrate [Ambien] 10 mg PO PRN PRN 05/09/16 Clonazepam [Klonopin -] 0.5 mg PO ASDIR 05/10/16 Rifaximin [Xifaxan] 550 mg PO BID 05/10/16 Family Disease History - Family Disease History Family Disease History: Other: Father (alive: healty), Mother (alive: healthy), Sister (1: healthy) Other Family History: No children Review of Systems - Review of Systems Constitutional: reports: Loss of Appetite Eyes: reports: No Symptoms HENT: reports: No Symptoms Neck: reports: No Symptoms Cardiovascular: reports: No Symptoms Respiratory: reports: No Symptoms Gastrointestinal: reports: Abdominal Pain, Diarrhea Genitourinary: reports: No Symptoms Breasts: reports: No Symptoms Reported Musculoskeletal: reports: No Symptoms Integumentary: reports: No Symptoms Neurological: reports: No Symptoms Endocrine: reports: No Symptoms Hematology/Lymphatic: reports: No Symptoms Psychiatric: reports: No Symptoms Physical Exam-SENIOR TECHNICAL BUSINESS ANALYST Vital Signs: Vital Signs Temperature 97.5 F L 05/11/16 18:16 Pulse Rate 73 05/11/16 18:16 Respiratory Rate 18 05/11/16 18:16 Blood Pressure 113/69 05/11/16 18:16 O2 Sat by Pulse Oximetry (%) 98 05/11/16 09:00 Constitutional: Yes: Well Nourished, No Distress, Calm Eyes: Yes: WNL, Conjunctiva Clear, EOM Intact HENT: Yes: WNL, Atraumatic, Normocephalic Neck: Yes: WNL, Supple, Trachea Midline Cardiovascular: Yes: Regular Rate and Rhythm Respiratory: Yes: Regular, CTA Bilaterally Gastrointestinal: Yes: WNL, Normal Bowel Sounds, Soft Pelvis: Yes: WNL (declined pelvic exam ,has her period) Breast(s): Yes: WNL Musculoskeletal: Yes: WNL Extremities: Yes: WNL Integumentary: Yes: WNL Neurological: Yes: WNL, Alert, Oriented ...Motor Strength: WNL Psychiatric: Yes: WNL, Alert, Oriented Labs: CBC, BMP 05/11/16 07:00 05/11/16 07:00 Problem List - Problems (1) Left ovarian cyst Code(s): N83.202 - UNSPECIFIED OVARIAN CYST, LEFT SIDE (2) Endometrioma of ovary Code(s): N80.1 - ENDOMETRIOSIS OF OVARY Assessment/Plan lt ovarian cyst most likely endometrioma . can not r/o malignancy , in view of multiple abdominal surgery and patient has been followed by her sweep press operator onco at [facility] Dr Terry . patient was advised to follow up with him as soon as discharge from hospital, patient agreed and will make apt with him , and her sweep press operator DR Gooden. importance of follow up discussed
[2016-05-11] MEDS ORDERED: traMADol HCL 50 MG TABLET PO PRN (19:02)
--- NOTE | 2016-05-11 20:26 | PN ---
GI Progress Note Subjective: Diarrhea today that started after Abx Evaluated by filter filler Complains of pelvic pain / lower abdominal pain No fevers reported - Objective Vital Signs: Vital Signs Temperature 97.5 F L 05/11/16 18:16 Pulse Rate 73 05/11/16 18:16 Respiratory Rate 18 05/11/16 18:16 Blood Pressure 113/69 05/11/16 18:16 O2 Sat by Pulse Oximetry (%) 98 05/11/16 09:00 Constitutional: Calm Eyes: No: Sclera Icterus Cardiovascular: Yes: Regular Rate and Rhythm Respiratory: Yes: CTA Bilaterally Gastrointestinal Inspection: No: Distention ...Auscultate: Yes: Normoactive Bowel Sounds ...Palpate: Yes: Tenderness (Pelvis / RLQ) ...Percussion: No: Tympanitic Edema: No Neurological: Yes: Alert, Oriented Labs: CBC, BMP 05/11/16 07:00 05/11/16 07:00 INR, PTT INR 1.15 (0.82-1.09) 05/09/16 19:00 Laboratory Tests 05/09/16 05/10/16 05/10/16 19:00 12:16 12:16 ESR 20 C-Reactive Protein < 0.3 < 0.3 - ....Imaging Cat Scan: Report Reviewed (Thickened ileum without inflammatory changes around the area. 8mm indeterminate lesion in dome of liver. filter filler findings assessed by filter filler) Problem List - Problems (1) Abdominal pain Assessment/Plan: Inflammatory markers are not suggestive of acute inflammatory process. 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 I advised her to arrange follow-up with her primary Plumbing Hardware Assembler Dr. Mattson. It is quite possible that her filter filler processes are also contributing to her pain such as her endometriosis She explained to hospitalist Yasmin that she is on oxycodone at home. She has been changed to trmadol for pain management but her home meds should be clarified prior to discharge so as to avoid opiate withdrawal. Advance to low residue diet in [facility] She has a low density lesion in the dome of her liver. ? liver cyst or solid This will need to be followed up as well. Check liver sono. Will likely need triple phase MRI of the abdomen for further characterization. Check hepatitis A /B/C serologies. Await stool studies Awaiting stool calprotectin to be collected Code(s): R10.9 - UNSPECIFIED ABDOMINAL PAIN
[2016-05-11] MEDS ORDERED: oxyCODONE HCL 5 MG TABLET PO ONE (23:44)
[2016-05-12] MEDS: ONDANSETRON 4 MG/2 ML VIAL IVPUSH PRN (01:08)
[2016-05-12] MEDS: HEPARIN NA (PORCINE) 5,000 UNITS/ML 1ML VIAL SQ SCH ×3 (06:53→21:52)
[2016-05-12] MEDS ORDERED: oxyCODONE HCL 5 MG TABLET PO PRN (07:46)
[2016-05-12 08:33] LABS: CALCIUM 8.7 mg/dL (8.5-10.1); CREATININE 0.6 mg/dL (0.55-1.02)
--- NOTE | 2016-05-12 09:40 | PN ---
GI Progress Note Subjective: No acute events States that her period has now started and that is causing further pelvic pain. She feels that the oxycodone given this morning did not help with the pain. Complains of heartburn. Has been on dexilant chronically - Objective Vital Signs: Vital Signs Temperature 98.8 F 05/12/16 06:00 Pulse Rate 99 H 05/12/16 06:00 Respiratory Rate 18 05/12/16 06:00 Blood Pressure 111/67 05/12/16 06:00 O2 Sat by Pulse Oximetry (%) 99 05/11/16 21:00 Constitutional: Calm Cardiovascular: Yes: Regular Rate and Rhythm Respiratory: Yes: CTA Bilaterally Gastrointestinal Inspection: Yes: Scars (pelvic). No: Distention ...Auscultate: Yes: Normoactive Bowel Sounds ...Palpate: Yes: Tenderness (pelvic) ...Percussion: No: Tympanitic Edema: No Neurological: Yes: Alert, Oriented Labs: CBC, BMP 05/11/16 07:00 05/12/16 07:00 INR, PTT INR 1.15 (0.82-1.09) 05/09/16 19:00 - ....Imaging Ultrasound: Report Reviewed (no liver lesion noted.) Problem List - Problems (1) Abdominal pain Assessment/Plan: With history of crohn's disease however not clear that the pain she experiencing is secondary to her crohn's or her other pelvic pathology Pain management per primary team Awaiting stool calprotectin Code(s): R10.9 - UNSPECIFIED ABDOMINAL PAIN (2) Heartburn Assessment/Plan: Ranitidine 150mg once daily as needed Code(s): R12 - HEARTBURN (3) Liver lesion Assessment/Plan: 8mm liver lesion noted on CT scan not seen on US last night Triple phase MRI of the abdomen with and without contrast to further evaluate Code(s): K76.9 - LIVER DISEASE, UNSPECIFIED (4) Follow up Assessment/Plan: Patient's recent radiographic / lab work-up should be faxed to Dr. Mattson' s office and she was advised to call his office to arrange follow-up. Ms. Rivas says that she follows with him at his [place] office Code(s): Z09 - ENCNTR FOR F/U EXAM AFT TRTMT FOR COND OTH THAN MALIG NEOPLM
[2016-05-12] MEDS ORDERED: RANITIDINE HCL 150 MG TABLET (FP) PO PRN (09:43)
[2016-05-12] MEDS: ESCITALOPRAM OXALATE 10 MG TABLET (FP) PO SCH (09:45)
[2016-05-12 09:50] LABS: ALBUMIN 3.4 g/dl (3.4-5.0); BILIRUBIN,DIRECT 0.2 mg/dL (0.0-0.2); BILIRUBIN,TOTAL 0.7 mg/dL (0.2-1.0); TOT PROT 6.8 g/dl (6.4-8.2)
[2016-05-12] MEDS: oxyCODONE HCL 5 MG TABLET PO PRN (13:58)
--- NOTE | 2016-05-12 14:06 | PN ---
Physical Exam: SUBJECTIVE: Patient seen and examined. She wants to know what is going on, her pain medication is not helping, she started her period. OBJECTIVE: Vital Signs Period Temp Pulse Resp BP Sys/Mckee Pulse Ox Last 24 Hr 97.5 F-98.8 F 62-99 18-20 103-113/66-69 99 PE Neuro: alert, awake, cn 2-12intact Pulm: CTAB CV: s1 s2 rrr no mrg Abd: RLQ tenderness, diffuse abd tenderness soft Ext: warm, no le edema Laboratory Results - last 24 hr 05/12/16 05/12/16 07:00 07:00 Sodium 143 Potassium 3.7 Chloride 102 Carbon Dioxide 30 Anion Gap 11 BUN 11 D Creatinine 0.6 Random Glucose 116 H D Calcium 8.7 Total Bilirubin 0.7 Cancelled Direct Bilirubin 0.2 Cancelled AST 13 L D Cancelled ALT 21 Cancelled Alkaline Phosphatase 80 Cancelled Total Protein 6.8 Cancelled Albumin 3.4 Cancelled Active Medications Generic Name Dose Route Start Last Admin Trade Name Freq PRN Reason Stop Dose Admin Bupropion HCl 150 mg 05/10/16 10:00 05/12/16 09:45 Wellbutrin Xl - PO 150 mg DAILY LEXIS Administration Escitalopram Oxalate 20 mg 05/10/16 10:00 05/12/16 09:45 Lexapro - PO 20 mg DAILY LEXIS Administration Heparin Sodium (Porcine) 5,000 unit 05/10/16 06:00 05/12/16 06:53 Heparin - SQ 5,000 unit TID LEXIS Administration Sodium Chloride 1,000 mls @ 100 mls/hr 05/09/16 23:00 05/11/16 16:28 Normal Saline - IV 100 mls/hr ASDIR LEXIS Administration Ondansetron HCl 4 mg 05/10/16 15:13 05/12/16 01:08 Zofran Injection IVPUSH 4 mg Q6H PRN Administration NAUSEA AND/OR VOMITING Oxycodone HCl 10 mg 05/12/16 12:59 Roxicodone - PO Q6H PRN PAIN Ranitidine HCl 150 mg 05/12/16 09:43 Zantac - PO DAILY PRN INDIGESTION Tramadol HCl 50 mg 05/11/16 19:02 05/11/16 21:02 Ultram - PO 50 mg Q8H PRN Administration PAIN Zolpidem Tartrate 10 mg 05/09/16 22:57 05/11/16 23:55 Ambien - PO 10 mg HS PRN Administration INSOMNIA Imaging: - CTAP shows L 5.7cm soft tissue thickening of left adenaxa, 8mm liver lesion Assessment: 35 year old with pmhx of Crohns disease, ovarian carcinoma, endometriosis, ovarian cysts, pancreatitis, and cyclical vomiting syndrome, anxiety, depression admitted with abdominal pain with nausea and vomiting. Plan: 1. Abdominal pain - Unclear if chron's flare vs pelvic etiology - Abd MRI triple phase to eval liver lesion found on CT - Stool studies pending - No BM for calprotectin to be collected - Discontinued antibiotics yesterday - Advance low residual diet - Increase oxycodone to 10mg, per pt home dose, will try consult pain magmt if worsens - D/w GI 2. Left adenexa thickening - Hx of right oophorectomy and ovarian cystectomy, per pt was malignant and removed - Findings on CTAP: left ovarian cyst most likely endometrioma - D/w ADMINISTRATIVE COORDINATOR Dr. Munguia, pt will need to follow up with ADMINISTRATIVE COORDINATOR oncologist Dr. Hooker at [facility] upon discharge and primary ADMINISTRATIVE COORDINATOR Dr. Gooden 3. Cronh's Disease - Will need strict follow up with GI Dr. Mattson, pt aware - Stop remicaid ~6 months ago 4. Depression - Lexapro, Wellbutrin 5. Nausea - Reglan/Zofran PRN - Zantac PRN Visit type - Emergency Visit Emergency Visit: Yes ED Registration Date: 05/09/16 Care time: The patient presented to the Emergency Department on the above date and was hospitalized for further evaluation of their emergent condition. - New Patient This patient is new to me today: No - Critical Care Critical Care patient: No
[2016-05-12] MEDS: HYDROmorphone HCL CARPU-JECT 1 MG/1 ML DISP.SYRIN IVPB PRN (19:58)
[2016-05-12] MEDS: ZOLPIDEM TARTRATE 5 MG TABLET PO PRN (21:52)
[2016-05-12] MEDS: SODIUM CHLORIDE 1,000 ML IV SCH ×2 (22:18→23:00)
[2016-05-13] MEDS: HYDROmorphone HCL CARPU-JECT 1 MG/1 ML DISP.SYRIN IVPB PRN ×4 (02:06→20:40)
[2016-05-13] MEDS: HEPARIN NA (PORCINE) 5,000 UNITS/ML 1ML VIAL SQ SCH ×3 (06:39→22:53)
[2016-05-13] MEDS: ESCITALOPRAM OXALATE 10 MG TABLET (FP) PO SCH (09:58)
[2016-05-13] MEDS: SODIUM CHLORIDE 1,000 ML IV SCH ×2 (09:59→23:19)
--- NOTE | 2016-05-13 15:45 | PN ---
Physical Exam: SUBJECTIVE: Patient seen and examined. Pain level is tolerable with change in meds. She is tolerating low residual diet, no nausea, vomiting Events: - MRI to be done - Ca 125 elevated, HALL SUPERVISOR onc consulted OBJECTIVE: Vital Signs Period Temp Pulse Resp BP Sys/Mckee Pulse Ox Last 24 Hr 98.2 F-98.3 F 62-86 16-18 103-118/56-79 99-99 PE Neuro: alert, awake, cn 2-12intact Pulm: CTAB CV: s1 s2 rrr no mrg Abd: RLQ tenderness- improved soft nd Ext: warm, no le edema Laboratory Results - last 24 hr 05/12/16 07:00 CA 125 Antigen 64.5 H Active Medications Generic Name Dose Route Start Last Admin Trade Name Freq PRN Reason Stop Dose Admin Bupropion HCl 150 mg 05/10/16 10:00 05/13/16 09:57 Wellbutrin Xl - PO 150 mg DAILY LEXIS Administration Escitalopram Oxalate 20 mg 05/10/16 10:00 05/13/16 09:58 Lexapro - PO 20 mg DAILY LEXIS Administration Heparin Sodium (Porcine) 5,000 unit 05/10/16 06:00 05/13/16 14:34 Heparin - SQ 5,000 unit TID LEXIS Administration Hydromorphone HCl 1 mg 05/12/16 18:51 05/13/16 14:33 Dilaudid Injection - IVPB 1 mg Q6H PRN Administration PAIN Sodium Chloride 1,000 mls @ 100 mls/hr 05/09/16 23:00 05/13/16 09:59 Normal Saline - IV 100 mls/hr ASDIR LEXIS Administration Ondansetron HCl 4 mg 05/10/16 15:13 05/12/16 01:08 Zofran Injection IVPUSH 4 mg Q6H PRN Administration NAUSEA AND/OR VOMITING Oxycodone HCl 10 mg 05/12/16 12:59 05/12/16 13:58 Roxicodone - PO 10 mg Q6H PRN Administration PAIN Ranitidine HCl 150 mg 05/12/16 09:43 Zantac - PO DAILY PRN INDIGESTION Tramadol HCl 50 mg 05/11/16 19:02 05/11/16 21:02 Ultram - PO 50 mg Q8H PRN Administration PAIN Imaging: - CTAP shows L 5.7cm soft tissue thickening of left adenaxa, 8mm liver lesion Assessment: 35 year old with pmhx of Crohns disease, ovarian carcinoma, endometriosis, ovarian cysts, pancreatitis, and cyclical vomiting syndrome, anxiety, depression admitted with abdominal pain with nausea and vomiting. Plan: 1. Abdominal pain - Unclear if chron's flare vs pelvic etiology - Abd MRI triple phase to eval liver lesion found on CT - Stool studies, calprotectin pending - Oxycodone to 10mg 2. Left adenexa thickening - Hx of right oophorectomy and ovarian cystectomy, per pt was malignant and removed - Findings on CTAP: left ovarian cyst most likely endometrioma - D/w HALL SUPERVISOR Dr. Munguia, pt will need to follow up with HALL SUPERVISOR oncologist Dr. Hooker at [facility] upon discharge and primary HALL SUPERVISOR Dr. Gooden - Elevated Ca125 - GYB oncology consulted, Dr. Kelley 3. Cronh's Disease - Follow up with GI Dr. Mattson, pt has appt 07/01 - Stop remicaid ~6 months ago 4. Depression - Lexapro, Wellbutrin 5. Nausea - Reglan/Zofran PRN - Zantac PRN Visit type - Emergency Visit Emergency Visit: Yes ED Registration Date: 05/09/16 Care time: The patient presented to the Emergency Department on the above date and was hospitalized for further evaluation of their emergent condition. - New Patient This patient is new to me today: No - Critical Care Critical Care patient: No
--- NOTE | 2016-05-13 17:18 | CONSULT ---
Consult Consult Specialty:: biofuels product development manager onc Referred by:: hospitalist service Reason for Consultation:: ovarian cancer - History of Present Illness Chief Complaint: nausea and vomiting History of Present Illness: 35 years old admitted for nausea and vomiting. She had history of Crohn's disease. SHE DENIES THAT SHE HAD OVARIAN CANCER. HER OOPHORECTOMY WAS PERFORMED FOR BENIGN CONDITION. - History Source History Provided By: Patient Limitations to Obtaining History: No Limitations - Past Medical History Gastrointestinal: Yes: Crohn's Disease Psych: Yes: Depression - Past Surgical History Past Surgical History: Yes: Cholecystectomy (laparoscopic), Oopherectomy (rt oophorectomy, lt ovarian cystectomy) - Alcohol/Substance Use Hx Alcohol Use: No History of Substance Use: reports: None - Smoking History Smoking history: Current every day smoker Have you smoked in the past 12 months: Yes Aproximately how many cigarettes per day: 10 - Social History Usual Living Arrangement: With Spouse ADL: Independent Occupation: Unemplyed History of Recent Travel: No Home Medications - Allergies Allergies/Adverse Reactions: Allergies Allergy/AdvReac Type Severity Reaction Status Date / Time aspirin Allergy Mild Rash Verified 05/09/16 19:20 - Home Medications Home Medications: Ambulatory Orders Bupropion HCl [Wellbutrin Xl -] 150 mg PO DAILY 04/24/16 Escitalopram Oxalate [Lexapro -] 25 mg PO DAILY 04/24/16 Ondansetron [Zofran -] 4 mg PO BID PRN #10 tablet 05/09/16 Oxycodone HCl/Acetaminophen [Percocet 10-325 mg Tablet] 1 each PO PRN PRN Prednisone [Deltasone -] 40 mg PO DAILY #14 tablet 05/09/16 Ranitidine HCl [Zantac] 150 mg PO DAILY 05/09/16 Zolpidem Tartrate [Ambien] 10 mg PO PRN PRN 05/09/16 Clonazepam [Klonopin -] 0.5 mg PO ASDIR 05/10/16 Rifaximin [Xifaxan] 550 mg PO BID 05/10/16 Family Disease History - Family Disease History Family Disease History: Other: Father (alive: healty), Mother (alive: healthy), Sister (1: healthy) Other Family History: No children Physical Exam Vital Signs: Vital Signs Temperature 98.3 F 05/13/16 14:53 Pulse Rate 86 05/13/16 14:53 Respiratory Rate 18 05/13/16 14:53 Blood Pressure 118/79 05/13/16 14:53 O2 Sat by Pulse Oximetry (%) 99 05/13/16 09:00 Labs: CBC, BMP 05/11/16 07:00 05/12/16 07:00 Assessment/Plan CROHN DISEASE NO OVARIAN CANCER WILL SIGN OFF FOR CONSULT
[2016-05-13] MEDS ORDERED: ZOLPIDEM TARTRATE 5 MG TABLET PO PRN (23:00)
[2016-05-14] MEDS: HEPARIN NA (PORCINE) 5,000 UNITS/ML 1ML VIAL SQ SCH ×2 (05:07→14:48)
[2016-05-14] MEDS: HYDROmorphone HCL CARPU-JECT 1 MG/1 ML DISP.SYRIN IVPB PRN ×2 (05:07→11:50)
[2016-05-14] MEDS: ESCITALOPRAM OXALATE 10 MG TABLET (FP) PO SCH (10:09)
[2016-05-14] MEDS: SODIUM CHLORIDE 1,000 ML IV SCH (11:52)
[2016-05-14 13:37] VITALS: PULSE 61; TEMP 98.1
--- NOTE | 2016-05-14 15:54 | PN ---
Progress Note (short form) - Note Progress Note: Awaiting MRI official read Problem List - Problems (1) Abdominal pain Code(s): R10.9 - UNSPECIFIED ABDOMINAL PAIN (2) Heartburn Code(s): R12 - HEARTBURN (3) Liver lesion Code(s): K76.9 - LIVER DISEASE, UNSPECIFIED (4) Follow up Code(s): Z09 - ENCNTR FOR F/U EXAM AFT TRTMT FOR COND OTH CAMERON SELLERS
--- NOTE | 2016-05-14 16:13 | PN ---
Physical Exam: SUBJECTIVE: Patient seen and examined OBJECTIVE: Vital Signs Period Temp Pulse Resp BP Sys/Mckee Pulse Ox Last 24 Hr 98.1 F-99.0 F 61-86 16-20 105-109/66-71 99 GENERAL: The patient is awake, alert, and fully oriented, in no acute distress. HEAD: Normal with no signs of trauma. EYES: PERRL, extraocular movements intact, sclera anicteric, conjunctiva clear. No ptosis. ENT: Ears normal, nares patent, oropharynx clear without exudates, moist mucous membranes. NECK: Trachea midline, full range of motion, supple. LUNGS: Breath sounds equal, clear to auscultation bilaterally, no wheezes, no crackles, no accessory muscle use. HEART: Regular rate and rhythm, S1, S2 without murmur, rub or gallop. ABDOMEN: Soft, nontender, nondistended, normoactive bowel sounds, no guarding, no rebound, no hepatosplenomegaly, no masses. EXTREMITIES: 2+ pulses, warm, well-perfused, no edema. NEUROLOGICAL: Cranial nerves II through XII grossly intact. Normal speech, gait not observed. PSYCH: Normal mood, normal affect. SKIN: Warm, dry, normal turgor, no rashes or lesions noted Active Medications Generic Name Dose Route Start Last Admin Trade Name Freq PRN Reason Stop Dose Admin Bupropion HCl 150 mg 05/10/16 10:00 05/14/16 10:09 Wellbutrin Xl - PO 150 mg DAILY LEXIS Administration Escitalopram Oxalate 20 mg 05/10/16 10:00 05/14/16 10:09 Lexapro - PO 20 mg DAILY LEXIS Administration Heparin Sodium (Porcine) 5,000 unit 05/10/16 06:00 05/14/16 14:48 Heparin - SQ 5,000 unit TID LEXIS Administration Hydromorphone HCl 1 mg 05/12/16 18:51 05/14/16 11:50 Dilaudid Injection - IVPB 1 mg Q6H PRN Administration PAIN Sodium Chloride 1,000 mls @ 100 mls/hr 05/09/16 23:00 05/14/16 11:52 Normal Saline - IV 100 mls/hr ASDIR LEXIS Administration Ondansetron HCl 4 mg 05/10/16 15:13 05/12/16 01:08 Zofran Injection IVPUSH 4 mg Q6H PRN Administration NAUSEA AND/OR VOMITING Oxycodone HCl 10 mg 05/12/16 12:59 05/12/16 13:58 Roxicodone - PO 10 mg Q6H PRN Administration PAIN Ranitidine HCl 150 mg 05/12/16 09:43 Zantac - PO DAILY PRN INDIGESTION Tramadol HCl 50 mg 05/11/16 19:02 05/11/16 21:02 Ultram - PO 50 mg Q8H PRN Administration PAIN Zolpidem Tartrate 10 mg 05/13/16 23:00 05/13/16 23:18 Ambien - PO 10 mg HS PRN Administration INSOMNIA ASSESSMENT/PLAN:
--- NOTE | 2016-05-14 17:59 | DS ---
Physical Exam: SUBJECTIVE: Patient seen and examined. Denies discomfort/pain. OBJECTIVE: Vital Signs Period Temp Pulse Resp BP Sys/Mckee Pulse Ox Last 24 Hr 98.1 F-99.0 F 61-86 16-20 105-109/66-71 99 PHYSICAL EXAM GENERAL: The patient is awake, alert, and fully oriented, in no acute distress. HEAD: Normal with no signs of trauma. EYES: PERRL, extraocular movements intact, sclera anicteric, conjunctiva clear. ENT: Ears normal, nares patent, oropharynx clear without exudates, moist mucous membranes. NECK: Trachea midline, full range of motion, supple. LUNGS: Breath sounds equal, clear to auscultation bilaterally, no wheezes, no crackles, no accessory muscle use. PSYCH: Normal mood, normal affect. SKIN: Warm, dry, normal turgor, no rashes or lesions noted. LABS HOSPITAL COURSE: Date of Admission:05/09/16 Date of Discharge: 05/14/16 Abdominal pain - chronic Assessment/Plan: Pain controlled with Oxycodone To follow up with GI specialist on discharge, has set appointment Chrons disease vs. pelvic etiology Follow up with GI Dr. Mattson, pt has appt 07/01 Has not been on Remicaid for over 6 months Left adenexa thickening Assessment/Plan: To follow up with SHEETROCK APPLICATOR as outpatient Has AGING ROOM OPERATOR oncologist Dr. Hooker at [facility] Has elevated CA 125 Disposition: Discharge home with follow up appointments with Dr. Mattson and SHEETROCK APPLICATOR at [facility] [place]. Full Code. Minutes to complete discharge: 40 Discharge Summary Reason For Visit: REVISIT FOR ABDOMINAL PAIN Current Active Problems Abdominal pain (Acute) Crohn disease (Acute) Crohn's disease involving terminal ileum (Acute) Endometrioma of ovary (Acute) Follow up (Acute) Heartburn (Acute) Left ovarian cyst (Acute) Liver lesion (Acute) Condition: Improved - Instructions Diet, Activity, Other Instructions: Please follow up with Dr. Munguia, AGING ROOM OPERATOR oncologist and Dr. Hooker at [facility] upon discharge. Please call see your GI doctor Dr. Welch for follow up as well as directions on when to start the Remicade. Plse call his office tomorrow and ask for an earlier appointment than 07/01/2016 , I tried to reach his office without success. Please return to the ER with any worsening symptoms. You will be given paper results of the MRI report, CT scan and SHEETROCK APPLICATOR tests we conducted. Continue on low fiber diet. Disposition: HOME - Home Medications Comprehensive Discharge Medication List: Ambulatory Orders Bupropion HCl [Wellbutrin Xl -] 150 mg PO DAILY 04/24/16 Escitalopram Oxalate [Lexapro -] 25 mg PO DAILY 04/24/16 Ondansetron [Zofran -] 4 mg PO BID PRN #10 tablet 05/09/16 Oxycodone HCl/Acetaminophen [Percocet 10-325 mg Tablet] 1 each PO PRN PRN Prednisone [Deltasone -] 40 mg PO DAILY #14 tablet 05/09/16 Ranitidine HCl [Zantac] 150 mg PO DAILY 05/09/16 Zolpidem Tartrate [Ambien] 10 mg PO PRN PRN 05/09/16 Clonazepam [Klonopin -] 0.5 mg PO ASDIR 05/10/16 Rifaximin [Xifaxan] 550 mg PO BID 05/10/16 This patient is new to me today: Yes Date on this admission: 06/06/16 Emergency Visit: Yes ED Registration Date: 05/09/16 Care time: The patient presented to the Emergency Department on the above date and was hospitalized for further evaluation of their emergent condition. Critical Care patient: No - Discharge Referral Referred to [facility] Med P.C.: No
[2016-05-14] MEDS: oxyCODONE HCL 5 MG TABLET PO PRN (18:09)
[2016-05-14 18:54] VITALS: BP 94/56
== END 2016-05-14 22:00 | disposition home or self-care (01) | DRG 245 ==
LOC: FER 18:08 → J6S 21:40
PROVIDERS: ADMIT Internal Medicine; ATTEND Nurse Practitioner Family
DX: K50.00 Crohn's disease of small intestine without complications (principal); R10.31 Right lower quadrant pain; N83.292 Other ovarian cyst, left side; N83.291 Other ovarian cyst, right side; K86.1 Other chronic pancreatitis; C56.9 Malignant neoplasm of unspecified ovary; N80.1 Endometriosis of ovary; R12 Heartburn; K76.9 Liver disease, unspecified; G43.A0 Cyclical vomiting, in migraine, not intractable
CPT/HCPCS: 36415; 74177-TC; 74183-TC; 76705-TC; 76830-TC; 80048; 80053; 80076; 81003; 83735; 85025; 85610; 85651; 86140; 86304; 87045; 87046; 87177; 87207; 87209; 87328; 87329; 87493; 93005; 99283-25; A9576; J1644

== ENCOUNTER 2017-03-24 12:43 | Emergency (ER) | payer OTHER ==
[2017-03-24 12:48] VITALS: BP 105/56; PULSE 81; TEMP 98.5; BMI 21.4
[2017-03-24] MEDS ORDERED: predniSONE 20 MG TABLET (UD) PO ONE (14:24)
[2017-03-24] MEDS ORDERED: ALBUTEROL SO4 2.5/IPRATROPIUM 0.5 INH SOL 3 ML VIAL.NEB. NEB ONE ×2 (14:24→14:28)
--- NOTE | 2017-03-24 14:25 | PDOC ---
History of Present Illness - General Chief Complaint: Cold Symptoms Stated Complaint: COUGH, FEVER Time Seen by Provider: 03/24/17 14:15 History Source: Patient Exam Limitations: No Limitations - History of Present Illness Initial Comments: 03/24/17 14:45 Patient came with complaints of persistent cough, had been diagnosed with probable flu proximally 2 weeks ago but patient states cough is been persistent and nonproductive. Denies fever, denies nasal drainage, denies any wheezing. Continue to smoke cigarettes Timing/Duration: reports: intermittent Severity: reports: moderate Possible Cause: Yes: smoke exposure Past History - Travel Traveled outside of the country in the last 30 days: No Close contact w/someone who was outside of country & ill: No - Past Medical History Allergies/Adverse Reactions: Allergies Allergy/AdvReac Type Severity Reaction Status Date / Time aspirin Allergy Mild Rash Verified 03/24/17 12:47 Home Medications: Ambulatory Orders Escitalopram Oxalate [Lexapro -] 25 mg PO DAILY 04/24/16 Ondansetron [Zofran -] 4 mg PO BID PRN #10 tablet 05/09/16 Zolpidem Tartrate [Ambien] 10 mg PO PRN PRN 05/09/16 Ranitidine [Zantac -] 150 mg PO DAILY PRN #0 tablet 05/14/16 Acetaminophen/Caffeine/Butalb [Fioricet -] 1 tab PO Q4H 03/24/17 Albuterol Sulfate Inhaler - [Ventolin HFA Inhaler -] 1 - 2 inh PO Q4H #1 inhaler 03/24/17 Alprazolam [Xanax] 0.5 mg PO ASDIR 03/24/17 Biotin 1 mg PO ASDIR 03/24/17 Botulinum Toxin A [Botox (Nf)] 100 units IJ ASDIR 03/24/17 Methadone [Dolophine -] 120 mg PO DAILY 03/24/17 Norethindrone-E.estradiol-Iron [Derrick Fe 1-20 Tablet] 1 each PO DAILY 03/24/17 Pantoprazole Sodium [Protonix -] 40 mg PO DAILY 03/24/17 Prednisone [Deltasone -] 20 mg PO BID #8 tablet 03/24/17 Sertraline HCl [Zoloft -] 100 mg PO DAILY 03/24/17 Cancer: Yes (CA TUMOR TO RT OVARY.) COPD: No GI Disorders: Yes (CROHNS DISEASE, GERD,) Disorders: Yes (ENDOMETRIOSIS.) Liver Disease: (PANCREATITIS) Psychiatric Problems: Yes (ANXIETY.DEPRESSION) - Surgical History Abdominal Surgery: Yes Appendectomy: Yes Cholecystectomy: Yes - Suicide/Smoking/Psychosocial Hx Smoking History: Current every day smoker Have you smoked in the past 12 months: Yes Number of Cigarettes Smoked Daily: 10 Information on smoking cessation initiated: Yes 'Breaking Loose' booklet given: 03/24/17 Hx Alcohol Use: No Drug/Substance Use Hx: No Substance Use Type: None Review of Systems - Review of Systems Able to Perform ROS?: Yes Is the patient limited Belarusian proficient: Yes Constitutional: Yes: Symptoms Reported, See HPI, Malaise. No: Fever, Loss of Appetite HEENTM: Yes: Symptoms Reported, Nose Congestion Respiratory: Yes: Symptoms reported, See HPI, Cough. No: Wheezing Musculoskeletal: Yes: Symptoms Reported, Muscle Pain Neurological: Yes: Symptoms reported, See HPI, Headache. No: Numbness, Paresthesia All Other Systems: Reviewed and Negative *Physical Exam - Vital Signs Last Vital Signs Temp Pulse Resp BP Pulse Ox 98.5 F 81 19 105/56 98 03/24/17 12:44 03/24/17 12:44 03/24/17 12:44 03/24/17 12:44 03/24/17 12:44 - Physical Exam General Appearance: Yes: Nourished, Appropriately Dressed, Mild Distress HEENT: positive: RADHA, Normal ENT Inspection, TMs Normal, Pharynx Normal Neck: positive: Supple. negative: Tender, Lymphadenopathy (R), Lymphadenopathy (L) Respiratory/Chest: positive: Lungs Clear, Normal Breath Sounds Gastrointestinal/Abdominal: positive: Soft. negative: Tender Extremity: positive: Normal Capillary Refill, Normal Range of Motion. negative : Tender Integumentary: positive: Warm, Pale Neurologic: positive: agile scrum coach II-XII NML intact, Fully Oriented, Alert, Normal Mood/ Affect, Normal Response, Motor Strength 5/5 Progress Note - Progress Note Progress Note: At us post URI, with chronic smoke exposure. We will treat with DuoNeb and prednisone *DC/Admit/Observation/Transfer Diagnosis at time of Disposition: Upper respiratory infection, viral - Discharge Dispostion Disposition: HOME Condition at time of disposition: Stable Admit: No - Referrals Referrals: ON STAFF,NOT [Primary Care Provider] - - Patient Instructions Printed Discharge Instructions: DI for Viral Upper Respiratory Infection -- Adult Additional Instructions: Rest, drink lots of fluids: Teas, water, soups, Pedialyte Saltwater gargles Steamy showers/seem to face break up mucus Avoid contact with others until fevers and cough resolved Lots of handwashing and good hygiene Continue [id number] medications for symptomatic relief Tylenol or Motrin for fever and pain Continue albuterol nebulizers every 4-6 hours for the next 2 days then as needed for continued cough Prednisone as directed until completed Followup with private physician in one to 2 days Return to emergency department / pediatric hospital for worsened symptoms, fevers, dehydration - Post Discharge Activity
[2017-03-24] MEDS ORDERED: predniSONE 20 MG TABLET (UD) ONE (14:28)
== END 2017-03-24 15:08 | disposition home or self-care (01) ==
LOC: JERFT 12:43
PROC: 3E0F7GC Introduction of Other Therapeutic Substance into Respiratory Tract, Via Natural or Artificial Opening (ICD-10-PCS; principal; 2017-03-24)
DX: J06.9 Acute upper respiratory infection, unspecified (principal); B97.89 Other viral agents as the cause of diseases classified elsewhere; F41.8 Other specified anxiety disorders; Z87.19 Personal history of other diseases of the digestive system
CPT/HCPCS: 99281-25

== ENCOUNTER 2017-05-13 11:54 | Emergency (ER) | payer OTHER ==
[2017-05-13 12:07] VITALS: BP 129/78; PULSE 68; TEMP 98.9; BMI 29.2
[2017-05-13 12:28] LABS: PH,URINE 5.5 (4.5-8); URINE APPEARANCE Slightly; URINE BILIRUBIN 1+ (NEGATIVE); URINE GLUCOSE (UA) Trace (NEGATIVE); URINE KETONE Negative (NEGATIVE); URINE NITRITE Positive (NEGATIVE)
[2017-05-13 12:29] LABS: HCG,QUALITATIVE URINE NEGATIVE
[2017-05-13 12:31] LABS: URINE BLOOD 3+ (NEGATIVE); URINE COLOR YELLOW; URINE LEUK ESTERASE 1+ (NEGATIVE); URINE PROTEIN 1+ (NEGATIVE)
[2017-05-13 12:37] LABS: URINE WBC 30-50 (0-5)
[2017-05-13 12:38] LABS: URINE BACTERIA FEW /hpf (NEGATIVE)
--- NOTE | 2017-05-13 12:42 | PDOC ---
History of Present Illness - General Chief Complaint: Urinary Problem Stated Complaint: URINARY SX Time Seen by Provider: 05/13/17 11:56 - History of Present Illness Initial Comments: 05/13/17 12:43 36 F with h/o Crohn's, recurrent UTIs, presenting with burning with urination x 1 week. Pt denies F/C. Denies vaginal discharge/bleeding. Is sexually active with 1 partner, denies h/o UTIs. Pt states that this feels very similar to her prior UTIs. Denies flank pain. Denies abdominal pain. Pt has been taking pyridium with no improvement in symptoms. Past History - Past Medical History Allergies/Adverse Reactions: Allergies Allergy/AdvReac Type Severity Reaction Status Date / Time aspirin Allergy Mild Rash Verified 05/13/17 11:57 Home Medications: Ambulatory Orders Escitalopram Oxalate [Lexapro -] 25 mg PO DAILY 04/24/16 Ondansetron [Zofran -] 4 mg PO BID PRN #10 tablet 05/09/16 Zolpidem Tartrate [Ambien] 10 mg PO PRN PRN 05/09/16 Ranitidine [Zantac -] 150 mg PO DAILY PRN #0 tablet 05/14/16 Acetaminophen/Caffeine/Butalb [Fioricet -] 1 tab PO Q4H 03/24/17 Albuterol Sulfate Inhaler - [Ventolin HFA Inhaler -] 1 - 2 inh PO Q4H #1 inhaler 03/24/17 Alprazolam [Xanax] 0.5 mg PO ASDIR 03/24/17 Biotin 1 mg PO ASDIR 03/24/17 Botulinum Toxin A [Botox (Nf)] 100 units IJ ASDIR 03/24/17 Methadone [Dolophine -] 120 mg PO DAILY 03/24/17 Norethindrone-E.estradiol-Iron [Derrick Fe 1-20 Tablet] 1 each PO DAILY 03/24/17 Pantoprazole Sodium [Protonix -] 40 mg PO DAILY 03/24/17 Sertraline HCl [Zoloft -] 100 mg PO DAILY 03/24/17 predniSONE [Deltasone -] 20 mg PO BID #8 tablet 03/24/17 Cephalexin [Keflex] 500 mg PO BID #14 capsule 05/13/17 Cancer: Yes (CA TUMOR TO RT OVARY.) COPD: No GI Disorders: Yes (CROHNS DISEASE, GERD,) Disorders: Yes (ENDOMETRIOSIS.) Liver Disease: (PANCREATITIS) Psychiatric Problems: Yes (ANXIETY.DEPRESSION) - Surgical History Abdominal Surgery: Yes Appendectomy: Yes Cholecystectomy: Yes - Reproductive History Is Patient Now?: No - Suicide/Smoking/Psychosocial Hx Smoking History: Current every day smoker Have you smoked in the past 12 months: Yes Number of Cigarettes Smoked Daily: 10 Information on smoking cessation initiated: Yes 'Breaking Loose' booklet given: 05/13/17 Hx Alcohol Use: No Drug/Substance Use Hx: No Substance Use Type: None Review of Systems - Review of Systems Comments:: 05/13/17 12:45 "GENERAL/CONSTITUTIONAL: No fever or chills. No weakness. HEAD, EYES, EARS, NOSE AND THROAT: No change in vision. No ear pain or discharge. No sore throat. CARDIOVASCULAR: No chest pain or shortness of breath. RESPIRATORY: No cough, wheezing, or hemoptysis. GASTROINTESTINAL: No nausea, vomiting, diarrhea or constipation. GENITOURINARY: + dysuria MUSCULOSKELETAL: No joint or muscle swelling or pain. No neck or back pain. SKIN: No rash NEUROLOGIC: No headache, vertigo, loss of consciousness, or change in strength/ sensation. ENDOCRINE: No increased thirst. No abnormal weight change. HEMATOLOGIC/LYMPHATIC: No anemia, easy bleeding, or history of blood clots. ALLERGIC/IMMUNOLOGIC: No hives or skin allergy. " *Physical Exam - Vital Signs Last Vital Signs Temp Pulse Resp BP Pulse Ox 98.9 F 68 18 129/78 96 05/13/17 11:55 05/13/17 11:55 05/13/17 11:55 05/13/17 11:55 05/13/17 11:55 - Physical Exam Comments: 05/13/17 12:46 "GENERAL: Awake, alert, and fully oriented, in no acute distress HEAD: No signs of trauma EYES: PERRLA, EOMI, sclera anicteric, conjunctiva clear ENT: Auricles normal inspection, hearing grossly normal, nares patent, oropharynx clear without exudates. Moist mucosa NECK: Nontender, no stepoffs, Normal ROM, supple, no lymphadenopathy, JVD, or masses LUNGS: Breath sounds equal, clear to auscultation bilaterally. No wheezes, and no crackles HEART: Regular rate and rhythm, normal S1 and S2, no murmurs, rubs or gallops ABDOMEN: Soft, nontender, normoactive bowel sounds. No guarding, no rebound. No masses EXTREMITIES: Normal range of motion, no edema. No clubbing or cyanosis. No cords, erythema, or tenderness NEUROLOGICAL: Cranial nerves II through XII intact. 5/5 strength and sensation in all extremities, Normal speech, normal gait, normal cerebellar function SKIN: Warm, Dry, normal turgor, no rashes or lesions noted. " ED Treatment Course - ADDITIONAL ORDERS Additional order review: Laboratory Results 05/13/17 12:15 Urine Color Yellow Urine Appearance Slightly Urine pH 5.5 Ur Specific [place] 1.015 Urine Protein 1+ H Urine Glucose (UA) Trace Urine Ketones Negative Urine Blood 3+ H Urine Nitrite Positive Urine Bilirubin 1+ H Urine Urobilinogen 2.0 H Ur Leukocyte Esterase 1+ H Urine HCG, Qual Negative Medical Decision Making - Medical Decision Making 05/13/17 12:46 36 F with dysuria x 1 week. Likely UTI given h/o recurrent UTIs. Pt with benign exam, no abdominal tenderness, no CVAT. Likely simple cystitis. - UA, UCx - UPT 05/13/17 12:47 UA consistent with UTI. Will DC pt on keflex. Pt is well appearing, with normal vitals. Clinically stable for DC at this time. I discussed the physical exam findings, ancillary test results and final diagnoses with the patient. I answered all of the patient's questions. The patient was satisfied with the care received and felt comfortable with the discharge plan and treatment plan. The patient agrees to follow up with the primary care physician within 24-72 hours. *DC/Admit/Observation/Transfer Diagnosis at time of Disposition: UTI (urinary tract infection) - Discharge Dispostion Disposition: HOME Condition at time of disposition: Stable - Prescriptions Prescriptions: Cephalexin [Keflex] 500 mg PO BID #14 capsule - Referrals - Patient Instructions Printed Discharge Instructions: DI for Urinary Tract Infection (UTI) Additional Instructions: You have a urinary tract infection. sorter upholstery parts the antibiotics and take them as prescribed to treat it. If you experience worsening pain, fevers, vomiting, or any other concerning symptoms, return to the ER immediately. Otherwise, follow up with your primary doctor within 1 week. - Post Discharge Activity - Attestations Physician Attestion: 05/13/17 12:49 I, Dr. Dm Logan MD, attest that this document has been prepared under my direction and personally reviewed by me in its entirety. I further attest, that it accurately reflects all work, treatment, procedures and medical decision -making performed by me.
[2017-05-13] MEDS ORDERED: CEPHALEXIN MONOHYDRATE 500 MG CAPSULE (UD) PO ONE (12:48)
[2017-05-13] MEDS ORDERED: CEPHALEXIN MONOHYDRATE 500 MG CAPSULE (UD) ONE (12:52)
== END 2017-05-13 13:01 | disposition home or self-care (01) ==
LOC: FER 11:54
DX: N39.0 Urinary tract infection, site not specified (principal); K21.9 Gastro-esophageal reflux disease without esophagitis; C56.9 Malignant neoplasm of unspecified ovary; F41.8 Other specified anxiety disorders; F17.210 Nicotine dependence, cigarettes, uncomplicated; Z88.6 Allergy status to analgesic agent; Z87.19 Personal history of other diseases of the digestive system; Z87.440 Personal history of urinary (tract) infections
CPT/HCPCS: 81003; 81015; 84703; 87086; 87186; 99283-25